=== PATIENT | female | born 1930 | race Caucasian/White ===

== ENCOUNTER 2016-10-18 22:31 | Observation (INO) | payer OTHER ==
[~2016-10-18] VITALS: Ht 162.6 cm; Wt 61.7 kg
--- NOTE | ~2016-10-18 | EKG ---
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 : 1930 Requested By: Isaak Almendarez Order Number: [id number] MD: Samuel Arredondo Measurements Intervals Story Rate: 62 P: 55 RI: 171 QRS: -27 QRSD: 168 T: 172 QT: 462 QTc: 470 Interpretive Statements Sinus rhythm Probable left atrial enlargement Left bundle branch block No previous ECG available for comparison Electronically Signed On 10-19-2016 9:28:11 CDT by Samuel Arredondo [email or web address] <ELECTRONICALLY SIGNED> By: Samuel Arredondo MD, [facility] 10/19/16 0928 D: 07/2235 35 Samuel Arredondo MD, FACC /EPI
--- NOTE | ~2016-10-18 | 2DMMODE ---
[facility] [address] [place] [address] 2 D/M-MODE ECHOCARDIOGRAM Name: ZAMORALEE Room #: 313-P ADM IN ..#: [id number] Admission: 10/19/16 Attend Phys: Germain Hammer MD Discharge: Date of : [birth year] Date of Service: 10/19/16 1133 Report #: [id number] THIS REPORT FOR: //name// APPROVED REPORT Study performed: 10/19/2016 08:09:22 EXAM: Comprehensive 2D, Doppler, and color-flow Echocardiogram Patient Location: Bedside Room #: 313 Other Information Study Quality: Good Indications Syncope Cardiomegaly 2D Dimensions RVDd: 36.78 mm LVEF(%): 40.63 (>50%) IVSd: 14.04 (7-11mm) LVOT Diam: 19.52 (18-24mm) LVDd: 42.41 mm PWd: 15.16 (7-11mm) Ascending Ao: 30.93 (22-36mm) LVDs: 34.09 (25-40mm) Aortic Root: 27.81 mm Lozoya's LVEF: 40.63 % Volumes Left Atrial Volume (Systole) Single Plane 4CH: 77.58 mL Single Plane 2CH: 87.50 mL LA ESV Index: 52.00 mL/m2 Aortic Valve AoV Peak Mustapha.: 1.56 m/s AO Peak Gr.: 9.71 mmHg LVOT Max P.93 mmHg LVOT Max V: 0.99 m/s LARRY Vmax: 1.90 cm2 Mitral Valve E/A Ratio: 0.9 MV Decel. Time: 182.73 ms MV E Max Mustapha.: 1.12 m/s MV A Mustapha.: 1.25 m/s MV PHT: 52.99 ms [facility] [place] [address] 2 D/M-MODE ECHOCARDIOGRAM Name: ZAMORALEE Room #: 313-P [facility] [place] M.R.#: [id number] Admission: 10/19/16 Attend Phys: Germain Hammer MD Discharge: Date of : [birth year] Date of Service: 10/19/16 1133 Report #: [id number] IVRT: 159.17 ms Pulmonary Valve PV Peak Mustapha.: 1.10 m/s PV Peak Gr.: 4.86 mmHg Pulmonary Vein P Vein S: 0.76 m/s P Vein A: 0.25 m/s P Vein D: 0.45 m/s P Vein A Dur.: 93.4 msec P Vein S/D Ratio: 1.69 Tricuspid Valve TR Peak Mustapha.: 3.36 m/s RAP Estimate: 10.00 mmHg TR Peak Gr.: 45.27 mmHg Left Ventricle The left ventricle is normal size. Mild to moderate concentric left ventricular hypertrophy. Left ventricular systolic function is decreased. LVEF is 35%. Mild diastolic dysfunction is present (impaired relaxation pattern). Right Ventricle Right ventricle is at the upper limits of normal. The right ventricular systolic function is normal. Atria Left atrium is dilated. Right atrium is dilated. Aortic Valve The aortic valve is normal in structure. Trace aortic regurgitation. There is no aortic valvular stenosis. Mitral Valve The mitral valve is normal in structure. Mild to moderate mitral regurgitation. No evidence of mitral valve stenosis. Tricuspid Valve The tricuspid valve is normal in structure. There is mild tricuspid regurgitation. The right atrial pressure is estimated at 10 mmHg. PAP is estimated at 50-55 mmHg. Pulmonic Valve The pulmonary valve is normal in structure. Trace pulmonic regurgitation. Great Vessels The aortic root is normal in size. The inferior vena cava is not [facility] [address] [place] [address] 2 D/M-MODE ECHOCARDIOGRAM Name: LEE ZAMORA Room #: 313-P [facility] [place] [facility]#: [id number] Admission: 10/19/16 Attend Phys: Germain Hammer MD Discharge: Date of : [birth year] Date of Service: 10/19/16 1133 Report #: [id number] visualized. <Conclusion> The left ventricle is normal size. Left ventricular systolic function is decreased. LVEF is 35%. Left atrium is dilated. Right atrium is dilated. The aortic valve is normal in structure. Trace aortic regurgitation. The mitral valve is normal in structure. Mild to moderate mitral regurgitation. The tricuspid valve is normal in structure. There is mild tricuspid regurgitation. The right atrial pressure is estimated at 10 mmHg. PAP is estimated at 50-55 mmHg. The pulmonary valve is normal in structure. Trace pulmonic regurgitation. <ELECTRONICALLY SIGNED> By: Jamie Pate MD 10/19/16 1133 1133 1133 Jamie Pate MD /INF
[2016-10-18 22:32] VITALS: BP 174/79
[2016-10-18] MEDS ORDERED: ALDOMET250 MG PO (22:45)
[2016-10-18] MEDS ORDERED: COREG25 MG PO (22:45)
[2016-10-18] MEDS ORDERED: LEVOTHYROXIN0.075 MG PO (22:46)
[2016-10-18] MEDS ORDERED: SPIRIVA INH (22:46)
[2016-10-18] MEDS ORDERED: FLONASE 0.05%50 MCG NASAL (22:47)
[2016-10-18] MEDS ORDERED: ASPIR 8181 MG PO (22:47)
[2016-10-18] MEDS ORDERED: TRAMADOL 50 MG50 MG PO (22:47)
[2016-10-18 22:50] LABS: ABSOLUTE NEUTROPHILS 4.5 thou/uL (1.4-8.2); BASOPHILS 0.7 % (0.0-2.0); EOSINOPHILS 4.8 % (0.0-3.0); HEMOGLOBIN 12.6 gm/dL (12.0-15.0); LYMPHOCYTES 21.2 % (24.0-44.0); MCH 28.2 pg (26.0-34.0); MCV 85.3 fL (80.0-100.0); PLATELET COUNT 232 thou/uL (150-400); POLYS 61.3 % (36.0-66.0); RBC 4.46 mil/uL (4.20-5.00); WBC 7.3 thou/uL (4.0-11.0)
[2016-10-18 22:53] LABS: MANUAL DIFF NO
[2016-10-18 22:55] LABS: ANION GAP 10 mmol/L (7-16); BUN 23 mg/dL (7-18); CALCIUM 9.6 mg/dL (8.5-10.1); CHLORIDE 98 mmol/L (98-107); CO2 25 mmol/L (21-32); CREATININE 0.9 mg/dL (0.6-1.0); GLUCOSE 87 mg/dL (74-106); POTASSIUM 3.9 mmol/L (3.5-5.1); SODIUM 133 mmol/L (136-145)
[2016-10-18 23:13] LABS: ALBUMIN 3.5 g/dL (3.4-5.0); ALKALINE PHOSPHATASE 58 U/L (46-116); CK-MB MASS 1.6 ng/mL (<0.5-3.6); MAGNESIUM 1.8 mg/dL (1.8-2.4); NT-PRO BRAIN NAT PEPTIDE 1639 pg/mL (<300); SGOT 28 U/L (15-37); SGPT 24 U/L (30-65); TOTAL BILIRUBIN 0.2 mg/dL (<0.1-1.0); TOTAL PROTEIN 7.4 g/dL (6.4-8.2); TROPONIN-I < 0.04 ng/mL (<0.04-0.07)
[2016-10-19] VITALS (7 sets, daily range): BP systolic 138–194; BP diastolic 57–82
== END 2016-10-19 16:00 | disposition home or self-care (01) ==
LOC: ER 22:31 → EROBS 10-19 00:49 → 3N 10-19 01:28
PROVIDERS: Emergency Medicine
DX: R55 Syncope and collapse (principal); I10 Essential (primary) hypertension; E03.9 Hypothyroidism, unspecified; J40 Bronchitis, not specified as acute or chronic; R32 Unspecified urinary incontinence; B37.9 Candidiasis, unspecified; F10.129 Alcohol abuse with intoxication, unspecified; F19.90 Other psychoactive substance use, unspecified, uncomplicated
CPT/HCPCS: 23023; 23024